=== PATIENT | female | born 1975 | race Caucasian/White ===

== ENCOUNTER 2017-07-14 12:54 | Emergency (ER) | payer OTHER ==
[~2017-07-14] VITALS: Ht 129.5 cm; Wt 72.6 kg
[~2017-07-14 12:54] MED LIST: CIPRODEX OTIC7.5 ML OT; CLEOCIN HCL300 M1 PO; NEOMYCIN-POLYMY10 M1 OT
--- NOTE | 2017-07-14 16:52 | ED HAND/WRIST INJURY COMPLAINT ---
History of Present Illness General Chief Complaint: Hand or Wrist Injury Stated Complaint: L WRIST INJURY Source: patient Exam Limitations: no limitations Vital Signs & Intake/Output Vital Signs & Intake/Output Vital Signs Date Time Temp Pulse Resp B/P B/P Pulse O2 O2 Flow FiO2 Mean Ox Delivery Rate 07/14 1747 97.8 87 20 124/77 100 Room Air 07/14 1504 96.1 94 20 129/87 97 Room Air 07/14 1316 97.9 103 20 129/82 96 Room Air Allergies Coded Allergies: strawberry (Severe, RASH, THROAT CLOSES 09/13/16) vancomycin (Severe, ANAPHYLAXIS PER PT AT [facility] 12/10/16) Echinacea (Intermediate, LIP SWELLING--COULD BE R/T AMOX INSTEAD 12/10/16) heparin (Intermediate, RASH, SENSATION THAT THROAT IS CLOSING. 09/13/16) mold (Intermediate, NASAL/SINUS 12/10/16) PER ALLERGY LIST SENT BY [facility] [place]. - 09/13/16 Cephalosporins (Intermediate, GI ISSUES 12/10/16) PER ALLERGY LIST SENT BY [facility]. - 09/13/16 Sulfa (Sulfonamide Antibiotics) (Intermediate, GI SYMPTOMS 12/10/16) PER ALLERGY LIST SENT BY [facility] [place]. - 09/13/16 gabapentin (Intermediate, GI SYMPTOMS 12/10/16) PER ALLERGY LIST SENT BY [facility]. - 09/13/16 Uncoded Allergies: DUST (Intermediate, NASLA/SINUS 12/10/16) PER ALLERGY LIST SENT BY [facility]. - 09/13/16 ROBBINS-2 INHIBITORS (UNKNOWN 09/13/16) PER ALLERGY LIST SENT BY [facility]. - 09/13/16 TREES (UNKNOWN 09/13/16) PER ALLERGY LIST SENT BY [facility]. - 09/13/16 Reconcile Medications Ciprofloxacin HCl/Dexameth (Ciprodex Otic Suspension) 0.3 %-0.1 % DROPS.SUSP 4 GTT OT BID OTITIS EXTERNA Clindamycin HCl (Cleocin HCl) 300 MG CAPSULE 1 CAP PO TID otitis media Neomycin/Polymyxin B Sulf/Hc (Xekvqafw-Petccvdia-Xj Ear Susp) 3.5 MG/ML-10,000 UNIT/ML-1 % DROPS.SUSP 4 GTT OT 4 TIMES/DAY otitis externa apply to left ear for 10 days Triage Note: C/O PAIN IN LEFT WRIST SINCE LAST PM, FELL OUT OF WHEELCHAIR. + RADIAL PULSE. DECLINES PAIN MEDS IN TRIAGE. Triage Nurses Notes Reviewed? yes Occurred: yesterday Duration: day(s): Injury Environment: home Severity: moderate Severity Numbers: 5 Pain/Injury Location: Left: Wrist. Context: fall Method of Injury: fall Modifying Factors: Improves With: pain medication. Associated Symptoms: none : No Patient currently breastfeeds: No HPI: 42 year old female with history of spina bifida presents to the clinic for left wrist pain. She states she was trying to get out of her wheel chair last night when she lost balance and fell on her out stretched hand. She said that she did not fall that hard. Her pain is a continuous 5/10 achy pain, improved with motrin, ice tenses up her arm, and does not radiate anywhere else. She denies head trauma, blacking out, losing consciousness, dizziness, lightheadedness, numbness, tingling, or being on blood thinners. (Yonathan Hirsch) Past History Travel History Traveled to [place] past 21 day No Medical History Any Pertinent Medical History? see below for history Neurological: migraine EENT: NONE Cardiovascular: NONE Respiratory: obstructive sleep apnea Gastrointestinal: diverticulitis, GERD Hepatic: NONE Renal: NONE Musculoskeletal: SPINA BIFIDA Psychiatric: NONE Endocrine: NONE Blood Disorders: NONE Cancer(s): NONE PROPERTY DEVELOPER/Reproductive: NONE Surgical History Surgical History: non-contributory Psychosocial History What is your primary language Bangladeshi Tobacco Use: Never used ETOH Use: denies use Family History Hx Contributory? No (Yonathan Hirsch) Review of Systems Review of Systems Constitutional: Reports: no symptoms. EENTM: Reports: no symptoms. Respiratory: Reports: no symptoms. Cardiovascular: Reports: no symptoms. GI: Reports: no symptoms. Genitourinary: Reports: no symptoms. Musculoskeletal: Reports: see HPI. Skin: Reports: no symptoms. Neurological/Psychological: Reports: no symptoms. Hematologic/Endocrine: Reports: no symptoms. Immunologic/Allergic: Reports: no symptoms. All Other Systems: Reviewed and Negative (Yonathan Hirsch) Physical Exam Physical Exam General Appearance: well developed/nourished, no apparent distress, alert, comfortable Head: atraumatic, normal appearance Eyes: Bilateral: normal appearance. Ears, Nose, Throat: hearing grossly normal Neck: normal inspection, supple, full range of motion Cardiovascular/Respiratory: normal breath sounds, regular rate/rhythm, no respiratory distress Shoulder Left: normal range of motion, normal inspection Shoulder Right: normal range of motion, normal inspection Elbow Left: normal range of motion, normal inspection Forearm Left: normal range of motion, normal inspection Wrist Left: normal range of motion, normal inspection, pain, no deformities, swelling, no erythema, photographic reproduction technician strength 5/5 Wrist Right: normal range of motion, normal inspection Hand Left: normal inspection, normal range of motion Hand Right: normal inspection, normal range of motion Neurologic/Tendon: normal sensation, normal motor functions, normal tendon functions, responds to pain, no evidence tendon injury, no pulse deficit Skin: intact, normal color (Yonathan Hirsch) Progress Differential Diagnosis: contusion, dislocation, fracture, sprain Plan of Care: Orders Procedure Date/time Status Durable Medical Equipment 07/14 1737 Active Diagnostic Imaging: Viewed by Me: Radiology Read. Discussed w/RAD: Radiology Read. Radiology Impression: PATIENT: JOSE TIRADO PRESENT AGE: 42 PATIENT ACCOUNT NO: [id number] : 74 LOCATION: [facility] ORDERING PHYSICIAN: Yonathan ANGUIANO SERVICE DATE: 07/14/17 EXAM TYPE: RAD - XRY-WRIST COMPLETE-LEFT EXAMINATION: XR WRIST, LEFT CLINICAL INFORMATION: Wrist pain. Fall. COMPARISON: None TECHNIQUE: 4 views. of the left wrist. FINDINGS: The bones and soft tissues are normal. No fracture. Alignment is anatomic with normal joint spaces. No erosions or abnormal soft tissue calcifications. IMPRESSION: Normal left wrist. DICTATED BY: Levi Duncan MD DATE/TIME DICTATED: 07/14/171706 BEARINGIZER:CORY DATE/TIME TRANSCRIBED:07/14/171706 CONFIDENTIAL, DO NOT COPY WITHOUT APPROPRIATE AUTHORIZATION. <Electronically signed in Other Vendor System> SIGNED BY: Levi Duncan MD 07/14/171710 (Yonathan Hirsch) Departure Departure Disposition: HOME OR SELF CARE Condition: Stable Clinical Impression Primary Impression: Left wrist sprain Referrals: Farens MD,Jerardo. (PCP/Family) Additional Instructions: Ice. Ibuprofen. Follow-up with orthopedic doctor as needed. Return if any concerns worsening symptoms. Please go over all results of today's visit with your primary care doctor. Contact your primary care doctor to let them know you were here in the emergency room. There may be nonspecific findings which may not be related to your visit today here in the emergency room but may require further evaluation and chronic monitoring by your primary care doctor. If you had a laceration today the chance of foreign body always remains. You should follow-up with your primary care doctor for recheck in 3-5 days for a wound check. If you had an x-ray done there is a chance that a fracture could have been missed on initial read and you should follow-up with your primary care doctor for repeat x-rays if symptoms persist. If your blood pressure was elevated here in the emergency room please have rechecked by [facility] primary care doctor within the next 48. If you were prescribed a narcotic here in the emergency room or any type of controlled substances you're not allowed to drive while taking this medication or operate any type of heavy machinery. Narcotics can make you feel lightheaded dizziness nausea and can cause constipation. You may need to picker feeder a stool softener. Thank you for choosing [facility] emergency room. Please return to the emergency room immediately if you have any other concerns worsening of symptoms. Departure Forms: Customer Survey General Discharge Information (Yonathan Hirsch) PA/DIRECTOR OF CARDIAC REHABILITATION Co-Sign Statement Statement: ED Attending supervision documentation- I saw and evaluated the patient. I have also reviewed all the pertinent lab results and diagnostic results. I agree with the findings and the plan of care as documented in the PA's/DIRECTOR OF CARDIAC REHABILITATION's documentation. x I have reviewed the ED Record and agree with the PA's/DIRECTOR OF CARDIAC REHABILITATION's documentation. [] Additions or exceptions (if any) to the PAs/DIRECTOR OF CARDIAC REHABILITATION's note and plan are summarized below: [] (Darian AGUILAR,Bart) Procedures Splinting Location: left wrist Manual Alignment Performed: No Pre-Made Type: velcro Splint: wrist Splint Applied By: splint applied by me Pre-Proc Neuro Vasc Exam: normal Post-Proc Neuro Vasc Exam: normal (Yonathan Hirsch)
--- NOTE | 2017-07-14 17:11 | RADIOLOGY REPORT ---
EXAMINATION: XR WRIST, LEFT CLINICAL INFORMATION: Wrist pain. Fall. COMPARISON: None TECHNIQUE: 4 views. of the left wrist. FINDINGS: The bones and soft tissues are normal. No fracture. Alignment is anatomic with normal joint spaces. No erosions or abnormal soft tissue calcifications. IMPRESSION: Normal left wrist.
[2017-07-14 17:47] VITALS: BP 124/77
== END 2017-07-14 17:48 ==
LOC: ERH 12:54
DX: S63.502A Unspecified sprain of left wrist, initial encounter (principal); W05.0XXA Fall from non-moving wheelchair, initial encounter; Y93.89 Activity, other specified; Y92.009 Unspecified place in unspecified non-institutional (private) residence as the place of occurrence of the external cause
CPT/HCPCS: 73110-LT

== ENCOUNTER 2017-09-27 11:57 | Emergency (ER) | payer OTHER ==
[~2017-09-27] VITALS: Ht 129.5 cm; Wt 72.6 kg
--- NOTE | 2017-09-27 14:01 | RADIOLOGY REPORT ---
EXAMINATION: XR PELVIS XR HIP, LEFT XR FEMUR, LEFT XR KNEE, LEFT CLINICAL INFORMATION: Left hip pain after fall. Left thigh pain after fall. Left knee pain after fall. COMPARISON: None TECHNIQUE: Frontal view of the pelvis. 2 views of the left hip. 2 views, 4 images of the left femur. 4 views of the left knee. FINDINGS: Pelvis/left hip: There is no evidence of acute fracture or dislocation. Dysplastic appearance of both hips. Prominent calcification/ossification in the medial soft tissues. The pelvic rim is intact. The sacroiliac joints are intact. The pubic symphysis appears slightly widened, although this may be chronic, as seen on prior CT. The bones are osteopenic. Left femur: There is a comminuted distal femoral metaphyseal fracture. Mild impaction. Soft tissue calcification extends medially to the level of the mid femur. Diffuse soft tissue prominence. Left knee: A comminuted distal femoral metaphyseal fracture is noted. There is mild impaction. Anteriorly displaced cortical fragment which measures 2.1 cm in CC dimension. Anterior angulation of the distal fragment with mild anterior displacement. No definite intra-articular extension Alignment at the knee appears maintained. Knee joint effusion suspected with lipohemarthrosis. IMPRESSION: Comminuted distal femoral metaphyseal fracture. Mild impaction. Diffuse osteopenia. Dysplastic appearance of the hips which is chronic.
--- NOTE | 2017-09-27 14:41 | ED GENERAL ADULT ---
History of Present Illness General Chief Complaint: General Adult Stated Complaint: L FEMUR FX S/P FALL FROM WHEELCHAIR TUESDAY Source: patient Exam Limitations: no limitations Vital Signs & Intake/Output Vital Signs & Intake/Output Vital Signs Date Time Temp Pulse Resp B/P B/P Pulse O2 O2 Flow FiO2 Mean Ox Delivery Rate 09/27 1809 99.3 112 18 120/44 95 Room Air 09/27 1610 100.3 112 20 115/56 96 Room Air 09/27 1453 98.0 100 20 112/76 99 Room Air 09/27 1201 98.3 118 18 146/95 96 Room Air Room Air ED Intake and Output 09/28 0000 09/27 1200 Intake Total Output Total Balance Patient 160 lb Weight Weight Reported by Patient Measurement Method Triage Note: PT TO ED WITH FATHER S/P FALL FORWARD OUT OF WHEELCHAIR ON TUESDAY, HX SPINA BIFIDA, WHEELCHAIR BOUND AT BASELINE, PT NOTICED LAST NIGHT LEFT UPPER LEG SWELLING AND BACK SIDE OF KNEE SWELLING, UNABLE TO BEND LEFT KNEE. WENT TO URGENT CARE AND HAD XRAYS, + FRACTURE OF LEFT FEMUR "IN 2-3 PLACES". FATHER HAS COPY OF XRAY ON DISC. Triage Nurses Notes Reviewed? yes Onset: Abrupt Duration: day(s): (2), constant, continues in ED Timing: single episode today Injury Environment: home Severity: mild, moderate No Modifying Factors: none LMP (ages 10-50): unknown : No Patient currently breastfeeds: No HPI: 42-year-old female history of spina bifida who is paralyzed from the waist down presents for evaluation of swelling of the left thigh and knee. Patient reports that 2 days ago she had slipped out of her wheelchair landing on her left knee and thigh. There was no head strike no other injuries. She does not feel any pain from the waist down but noticed that the knee and hip were swollen. She went to an urgent care with a completed x-rays and noted a fracture of her distal femur. Patient reports that she otherwise feels well. She does not that she has had some cough and congestion over the past several days which she has a history to allergies. She's not had fevers. No headaches chest pain shortness of breath. She spends her time in a wheelchair or in bed. (Brice ANGUIANO,Ry) Allergies Coded Allergies: strawberry (Severe, RASH, THROAT CLOSES 09/13/16) vancomycin (Severe, ANAPHYLAXIS PER PT AT [facility] 12/10/16) Echinacea (Intermediate, LIP SWELLING--COULD BE R/T AMOX INSTEAD 12/10/16) heparin (Intermediate, RASH, SENSATION THAT THROAT IS CLOSING. 09/13/16) mold (Intermediate, NASAL/SINUS 12/10/16) PER ALLERGY LIST SENT BY [facility]. -CG 09/13/16 celecoxib (UNKNOWN 09/30/17) tree and shrub pollen (UNKNOWN 09/30/17) Cephalosporins (Intermediate, GI ISSUES 12/10/16) PER ALLERGY LIST SENT BY [facility]. -CG 09/13/16 Sulfa (Sulfonamide Antibiotics) (Intermediate, GI SYMPTOMS, HAD TO HAVE TUBES PUT IN HER EAR FROM OTIC DROP 09/30/17) PER ALLERGY LIST SENT BY [facility]. -CG 09/13/16 gabapentin (Intermediate, GI SYMPTOMS 12/10/16) PER ALLERGY LIST SENT BY [facility]. - 09/13/16 Uncoded Allergies: DUST (Intermediate, NASAL/SINUS 09/30/17) PER ALLERGY LIST SENT BY [facility]. - 09/13/16 Reconcile Medications Alprazolam 0.25 MG TABLET 1 TAB PO PRN ANXIETY (Reported) Ibuprofen (Advil) 200 MG TABLET 2 TAB PO Q4-5H PRN PAIN/INFLAMMATION ( Reported) [WEIGHT LOSS SUPPLEME] 1 CAP PO DAILY SUPPLEMENT (Reported) (Darian GAUILAR,Bart) Past History Travel History Traveled to [place] past 21 day No Medical History Any Pertinent Medical History? see below for history Neurological: migraine EENT: NONE Cardiovascular: NONE Respiratory: obstructive sleep apnea Gastrointestinal: diverticulitis, GERD Hepatic: NONE Renal: NONE Musculoskeletal: SPINA BIFIDA Psychiatric: NONE Endocrine: NONE Blood Disorders: NONE Cancer(s): NONE SIMULATION DEVELOPER/Reproductive: NONE Surgical History Surgical History: non-contributory Psychosocial History What is your primary language Vietnamese Tobacco Use: Never used ETOH Use: denies use Illicit Drug Use: denies illicit drug use Family History Hx Contributory? No (Ry Simmons) Review of Systems Review of Systems Constitutional: Reports: no symptoms. EENTM: Reports: no symptoms. Respiratory: Reports: no symptoms. Cardiovascular: Reports: no symptoms. GI: Reports: no symptoms. Genitourinary: Reports: no symptoms. Musculoskeletal: Reports: see HPI, joint swelling. Skin: Reports: no symptoms. Neurological/Psychological: Reports: no symptoms. Hematologic/Endocrine: Reports: no symptoms. Immunologic/Allergic: Reports: no symptoms. All Other Systems: Reviewed and Negative (Ry Simmons) Physical Exam Physical Exam General Appearance: well developed/nourished, no apparent distress, alert, awake Head: atraumatic, normal appearance Eyes: Bilateral: normal appearance, PERRL, EOMI. Ears, Nose, Throat: hearing grossly normal Neck: normal inspection, supple, full range of motion Respiratory: normal breath sounds, chest non-tender, no respiratory distress, lungs clear Cardiovascular: regular rate/rhythm, normal peripheral pulses Peripheral Pulses: 1+ tibialis posterior (R), 1+ tibialis posterior (L), 1+ dorsalis pedis (R), 1+ dorsalis pedis (L) Gastrointestinal: soft, non-tender Back: normal inspection, normal range of motion, no vertebral tenderness Extremities: patient is paralyzed from the waist down. The left distal upper leg and knee are diffusely swollen. No erythema the skin is not tense. No gross deformities. Range of motion and sensory supply is not present at baseline. vascular supply is intact. The muscles are diffusely atrophied bilaterally, does not appear in any breakdown of the skin. No ulcerations no evidence of cellulitis Neurologic/Psych: no motor/sensory deficits, awake, alert, oriented x 3 Skin: intact, normal color, warm/dry Core Measures ACS in differential dx? No CVA/TIA Diagnosis: No Sepsis Present: No Sepsis Focused Exam Completed? No (Ry Simmons) Progress Differential Diagnoses I considered the following diagnoses in my evaluation of the patient: [Fracture, contusion, sprain, joint effusion or septic arthritis] Plan of Care: Orders Procedure Date/time Status Durable Medical Equipment 09/27 1534 Active CBC WITHOUT DIFFERENTIAL 09/27 1419 Complete EKG 09/27 1419 Active Laboratory Tests 09/27/17 1505: Troponin I Cancelled, APTT Cancelled, CBC w Diff NO MAN DIFF REQ, RBC 4.59, MCV 81.3, MCH 26.5 L, MCHC 32.5 L, RDW 15.6 H, MPV 8.0, Gran % 79.0 H, Lymphocytes % 9.3 L, Monocytes % 10.2 H, Eosinophils % 1.0, Basophils % 0.5, Absolute Granulocytes 7.2 H, Absolute Lymphocytes 0.8 L, Absolute Monocytes 0.9 H, Absolute Eosinophils 0.1, Absolute Basophils 0 09/27/17 1419: Urine Color Cancelled, Urine Clarity Cancelled, Urine pH Cancelled, Ur Specific Hayes Cancelled, Urine Protein Cancelled, Urine Ketones Cancelled, Urine Nitrite Cancelled, Urine Bilirubin Cancelled, Urine Urobilinogen Cancelled, Ur Leukocyte Esterase Cancelled, Ur Microscopic Cancelled, Urine Hemoglobin Cancelled, Urine Glucose Cancelled She is here after a fall. She is wheelchair-bound and paralyzed from the waist down due to spina bifida. She landed on her left leg. She has no pain as she is paralyzed but does note swelling to the left knee and thigh. X-rays were obtained and show a comminuted distal femoral metaphyseal fracture. It is slightly impacted. The knee is aligned no fracture of the hip. Vascular supply is intact. Spoke with Dr. Sahu who recommends placing the patient in a knee immobilizer and repeat the x-ray. Patient was placed in a knee immobilizer and x-rays showed appropriate alignment of the femur. Dr. Sahu reviewed all images and feels that the best course of action at this time is a nonsurgical approach and the patient stay in a knee immobilizer. Advised patient to wear immobilizer at all times. Check skin and clean skin once daily. Advised patient to look out for signs of ulceration or skin breakdown. Patient will follow-up with Christian Sahu MD's Tuesday or Tuesday. Patient did spike a low-grade temp of 100.3 while in the emergency department. There is no evidence of cellulitis or septic arthritis on exam. Her lungs are clear to auscultation she has no chest pain or shortness of breath. She does note a mild cough. Cbc is negative for elevated white count. Patient was medicated with Tylenol with resolution of her fever. Patient has no abdominal pain. She has no history of recurrent UTIs. Continue Tylenol or ibuprofen for fever and monitor symptoms. If fever persists she has worsening swelling or skin changes chest pain shortness of breath or any other concerns return immediately. Reviewed return precautions in detail. Diagnostic Imaging: Viewed by Me: Radiology Read. Discussed w/RAD: Radiology Read. Radiology Impression: PATIENT: JOSE TIRADO PRESENT AGE: 42 PATIENT ACCOUNT NO: [id number] : 74 LOCATION: [facility] ORDERING PHYSICIAN: Ry ANGUIANO SERVICE DATE: 09/27/17 EXAM TYPE: RAD - XRY-AP PELVIS; XRY-FEMUR, LEFT 2 VIEWS; XRY-HIP 2-3 VIEWS, LEFT; XRY-KNEE COMPLETE LEFT EXAMINATION: XR PELVIS XR HIP, LEFT XR FEMUR, LEFT XR KNEE, LEFT CLINICAL INFORMATION: Left hip pain after fall. Left thigh pain after fall. Left knee pain after fall. COMPARISON: None TECHNIQUE: Frontal view of the pelvis. 2 views of the left hip. 2 views, 4 images of the left femur. 4 views of the left knee. FINDINGS: Pelvis/left hip: There is no evidence of acute fracture or dislocation. Dysplastic appearance of both hips. Prominent calcification/ ossification in the medial soft tissues. The pelvic rim is intact. The sacroiliac joints are intact. The pubic symphysis appears slightly widened, although this may be chronic, as seen on prior CT. The bones are osteopenic. Left femur: There is a comminuted distal femoral metaphyseal fracture. Mild impaction. Soft tissue calcification extends medially to the level of the mid femur. Diffuse soft tissue prominence. Left knee: A comminuted distal femoral metaphyseal fracture is noted. There is mild impaction. Anteriorly displaced cortical fragment which measures 2.1 cm in CC dimension. Anterior angulation of the distal fragment with mild anterior displacement. No definite intra-articular extension Alignment at the knee appears maintained. Knee joint effusion suspected with lipohemarthrosis. IMPRESSION: Comminuted distal femoral metaphyseal fracture. Mild impaction. Diffuse osteopenia. Dysplastic appearance of the hips which is chronic. DICTATED BY: Tonio Mclaughlin MD DATE/TIME DICTATED:09/27/171351 LOADING DOCK HELPER:CORY DATE/TIME TRANSCRIBED:1351 CONFIDENTIAL, DO NOT COPY WITHOUT APPROPRIATE AUTHORIZATION. < Electronically signed in Other Vendor System> SIGNED BY: Tonio Mclaughlin MD 09/27/17 1401, PRESENT AGE: 42 PATIENT ACCOUNT NO: [id number] : 74 LOCATION: [facility] ORDERING PHYSICIAN: Ry ANGUIANO SERVICE DATE: 09/27/17 EXAM TYPE: RAD - XRY-KNEE COMPLETE LEFT EXAMINATION: XR KNEE, LEFT CLINICAL INFORMATION: Femur fracture. Immobilizer placement. COMPARISON: Radiographs from earlier today. TECHNIQUE: Four views of the left knee. FINDINGS: Comminuted distal femoral metaphyseal fracture is again noted. There is persistent mild impaction. Alignment is without significant change. Slight anterior angulation of the distal fragment. Displaced cortical fragment anteriorly. Lipohemarthrosis present. Diffuse soft tissue swelling. Diffuse osteopenia. IMPRESSION: Comminuted distal femoral metaphyseal fracture. Similar alignment to prior. DICTATED BY: Lissette AGUILAR,Tonio DATE/TIME DICTATED:09/27/171640 LOADING DOCK HELPER:CORY DATE/TIME TRANSCRIBED:09/27/171640 CONFIDENTIAL, DO NOT COPY WITHOUT APPROPRIATE AUTHORIZATION. <Electronically signed in Other Vendor System Initial ED EKG: normal sinus rhythm (Ry Simmons) Departure Departure Disposition: HOME OR SELF CARE Condition: Stable Clinical Impression Primary Impression: Femur fracture, left Qualifiers: Encounter type: initial encounter Femur location: unspecified portion of femur Fracture type: closed Fracture morphology: unspecified fracture morphology Qualified Code: S72.92XA - Unspecified fracture of left femur, initial encounter for closed fracture Referrals: Luis Alberto AGUILAR,Christian Wong MD,Jas Casillas (PCP/Family) Additional Instructions: Rest, avoid excessive movement. Wear splint at all times except for once daily for cleaning and checking your skin. Make a follow-up with Christian Sahu MD orthopedic surgeon for next Tuesday or tuesday. Monitor symptoms closely. If YOU HAVE a persistent high fever, redness of your knee, worsening swelling or any other concerns return immediately. Departure Forms: Customer Survey General Discharge Information (Ry Simmons) PA/QUALITY ASSURANCE INTERN Co-Sign Statement Statement: ED Attending supervision documentation- x I saw and evaluated the patient. I have also reviewed all the pertinent lab results and diagnostic results. I agree with the findings and the plan of care as documented in the PA's/QUALITY ASSURANCE INTERN's documentation. [] I have reviewed the ED Record and agree with the PA's/QUALITY ASSURANCE INTERN's documentation. [] Additions or exceptions (if any) to the PAs/QUALITY ASSURANCE INTERN's note and plan are summarized below: [] (Darian AGUILAR,Bart) Critical Care Note Critical Care Note Critical Care Time: non-applicable (Brice ANGUIANO,Ry)
[2017-09-27 15:28] LABS: ABSOLUTE BASOPHIL COUNT 0 /CUMM (0.0-0.2); ABSOLUTE EOSINOPHIL COUNT 0.1 /CUMM (0.0-0.7); ABSOLUTE GRANULOCYTE CT 7.2 /CUMM (1.4-6.5); ABSOLUTE LYMPH COUNT 0.8 /CUMM (1.2-3.4); ABSOLUTE MONOCYTE COUNT 0.9 /CUMM (0.10-0.60); BASOPHIL % 0.5 % (0.0-2.0); HEMATOCRIT 37.3 % (37-47); MEAN CORPUSCULAR HGB 26.5 PG (27.0-31.0); MEAN CORPUSCULAR HGB CONC 32.5 G/DL (33.0-37.0); MEAN CORPUSCULAR VOLUME 81.3 FL (81.0-99.0); PLATELET COUNT 324 /CUMM (130-400); RBC DISTRIBUTION WIDTH 15.6 % (11.5-14.5); RED BLOOD CELL CT 4.59 /CUMM (4.20-5.40); WHITE BLOOD CELL COUNT 9.1 /CUMM (4.8-10.8)
--- NOTE | 2017-09-27 16:46 | RADIOLOGY REPORT ---
EXAMINATION: XR KNEE, LEFT CLINICAL INFORMATION: Femur fracture. Immobilizer placement. COMPARISON: Radiographs from earlier today. TECHNIQUE: Four views of the left knee. FINDINGS: Comminuted distal femoral metaphyseal fracture is again noted. There is persistent mild impaction. Alignment is without significant change. Slight anterior angulation of the distal fragment. Displaced cortical fragment anteriorly. Lipohemarthrosis present. Diffuse soft tissue swelling. Diffuse osteopenia. IMPRESSION: Comminuted distal femoral metaphyseal fracture. Similar alignment to prior.
[2017-09-27 18:09] VITALS: BP 120/44
[2017-09-30] MEDS ORDERED: ADVIL200 M2 PO (17:46)
[2017-09-30] MEDS ORDERED: ALPRAZOLAM0.25 M1 PO (17:47)
[2017-09-30] MEDS ORDERED: [UNRECOGNIZED DRUG - OTHER] PO (17:47)
== END 2017-09-27 18:32 ==
LOC: ERH 11:57
PROVIDERS: Physician Assistant Medical
DX: S72.352A Displaced comminuted fracture of shaft of left femur, initial encounter for closed fracture (principal); W05.0XXA Fall from non-moving wheelchair, initial encounter; Y92.009 Unspecified place in unspecified non-institutional (private) residence as the place of occurrence of the external cause
CPT/HCPCS: 72170; 73502-LT; 73552; 73562-LT; 93005; 93010; 96374; J0131

== ENCOUNTER 2017-11-11 17:53 | Emergency (ER) | payer OTHER ==
[~2017-11-11] VITALS: Ht 129.5 cm; Wt 72.6 kg
[~2017-11-11 17:53] MED LIST changes: +ADVIL200 M2 PO; +ALPRAZOLAM0.25 M1 PO; +[UNRECOGNIZED DRUG - OTHER] PO
[2017-11-11 17:57] VITALS: BP 136/86
--- NOTE | 2017-11-11 19:39 | ED UPPER/LOWER EXTREMITY COMPL ---
History of Present Illness General Chief Complaint: Lower Extremity Problems Stated Complaint: SENT BY DR FOR POSSIBLE CLOT IN LEFT LEG Source: patient Exam Limitations: no limitations Vital Signs & Intake/Output Vital Signs & Intake/Output Vital Signs Date Time Temp Pulse Resp B/P B/P Pulse O2 O2 Flow FiO2 Mean Ox Delivery Rate 11/11 1757 98.4 106 18 136/86 98 Room Air Allergies Coded Allergies: strawberry (Severe, RASH, THROAT CLOSES 09/13/16) vancomycin (Severe, ANAPHYLAXIS PER PT AT [facility] 12/10/16) Echinacea (Intermediate, LIP SWELLING--COULD BE R/T AMOX INSTEAD 12/10/16) heparin (Intermediate, RASH, SENSATION THAT THROAT IS CLOSING. 09/13/16) mold (Intermediate, NASAL/SINUS 12/10/16) PER ALLERGY LIST SENT BY [facility]. -CG 09/13/16 celecoxib (UNKNOWN 09/30/17) tree and shrub pollen (UNKNOWN 09/30/17) Cephalosporins (Intermediate, GI ISSUES 12/10/16) PER ALLERGY LIST SENT BY [facility] [place] -CG 09/13/16 Sulfa (Sulfonamide Antibiotics) (Intermediate, GI SYMPTOMS, HAD TO HAVE TUBES PUT IN HER EAR FROM OTIC DROP 09/30/17) PER ALLERGY LIST SENT BY [facility] [place]. -CG 09/13/16 gabapentin (Intermediate, GI SYMPTOMS 12/10/16) PER ALLERGY LIST SENT BY [facility] [place]. -CG 09/13/16 Uncoded Allergies: DUST (Intermediate, NASAL/SINUS 09/30/17) PER ALLERGY LIST SENT BY [facility] [place]. -CG 09/13/16 Reconcile Medications Alprazolam 0.25 MG TABLET 1 TAB PO PRN ANXIETY (Reported) Ibuprofen (Advil) 200 MG TABLET 2 TAB PO Q4-5H PRN PAIN/INFLAMMATION ( Reported) [WEIGHT LOSS SUPPLEME] 1 CAP PO DAILY SUPPLEMENT (Reported) Triage Note: 42 YO FEAMLE SENT TO ER BY DR JOHNSON FOR R/O DVT IN L LEG. PT HX OF SPINAL BIFIDA, PARAPLEGIC, STATES SHE FRACTURED THE FEMUR 5 WEEKS AGO. NEW SWELLING TO LEG NOW. Triage Nurses Notes Reviewed? yes Onset: Abrupt Duration: hour(s):, constant, continues in ED Severity: mild, moderate : No Patient currently breastfeeds: No HPI: Patient presents for evaluation of swelling redness and "firmness" of the left proximal medial thigh that began today. Patient states that she fractured her femur in "3 places" on September 23. The patient is insensate to the legs and was unaware of the injury initially. Patient spoke with her engineering documentation specialist today regarding the swelling and presents for evaluation of possible DVT. Patient's symptoms have been chronic since onset of continue here in the emergency department. She denies any associated chest pain or shortness of breath or palpitations. She spoke with her engineering documentation specialist who sent her to the emergency Department to rule out a blood clot. Past History Travel History Traveled to [place] past 21 day No Medical History Any Pertinent Medical History? see below for history Neurological: migraine EENT: NONE Cardiovascular: NONE Respiratory: obstructive sleep apnea Gastrointestinal: diverticulitis, GERD Hepatic: NONE Renal: NONE Musculoskeletal: SPINA BIFIDA Psychiatric: NONE Endocrine: NONE Blood Disorders: NONE Cancer(s): NONE RECEIVING COORDINATOR/Reproductive: NONE Surgical History Surgical History: non-contributory Psychosocial History What is your primary language Omani Tobacco Use: Quit >30 days ago Family History Hx Contributory? No Review of Systems Review of Systems Constitutional: Reports: no symptoms. EENTM: Reports: no symptoms. Respiratory: Reports: no symptoms. Cardiovascular: Reports: no symptoms. Gastrointestinal/Abdominal: Reports: no symptoms. Genitourinary: Reports: no symptoms. Musculoskeletal: Reports: no symptoms. Skin: Reports: see HPI. Neurological/Psychological: Reports: no symptoms. Hematologic/Endocrine: Reports: no symptoms. Immunological: Reports: no symptoms. All Other Systems: Reviewed and Negative Physical Exam Physical Exam General Appearance: see below Comments: Gen.: Well-nourished, well-developed, no acute respiratory distress. Head: Normocephalic, atraumatic. Eyes: Normal inspection bilaterally Ears: Normal inspection bilaterally Nose: Normal inspection Throat/mouth : Moist mucosa Neck: Supple, full range of motion, no goiter Heart: Regular rate and rhythm Lungs: Quiet respirations Back: Normal range of motion Extremities: Left lower extremity: Left proximal medial thigh induration without warmth or erythema. There is no fluctuance. Patient is unable to determine tenderness as she is insensate from the waist down. Neurologic: Cranial nerves grossly intact, speech is clear Skin: warm and dry Psychiatric: Calm, cooperative, no apparent delusions or hallucinations Progress Differential Diagnosis: cellulitis, abscess, contact dermatitis, shingles Plan of Care: Orders Procedure Date/time Status PARTIAL THROMBOPLASTIN TIME 11/11 1801 Active PROTHROMBIN TIME 11/11 1801 Active COMPREHENSIVE METABOLIC PANEL 11/11 1801 Active CBC WITHOUT DIFFERENTIAL 11/11 1801 Active Diagnostic Imaging: Discussed w/RAD: Ultrasound. Radiology Impression: PATIENT: JOSE TIRADO PRESENT AGE: 42 PATIENT ACCOUNT NO: [id number] : 74 LOCATION: [facility] ORDERING PHYSICIAN: Dali ANGUIANO SERVICE DATE: 11/11/17 EXAM TYPE: US - US -DUPLEX VENOUS EXTREM UNI EXAMINATION: US TRIPLEX LOWER EXTREMITY, LEFT CLINICAL INFORMATION: Swelling. COMPARISON: None TECHNIQUE: Color-flow triplex imaging with spectral analysis and compression Doppler were performed on the lower extremity. FINDINGS: Respiratory variation, normal compression and augmented flow are noted throughout the lower extremity. The visualized common femoral vein, superficial femoral vein, profunda femoral vein, popliteal vein and midcalf peroneal and posterior tibial venous segments show no evidence of deep venous thrombosis. There is no Santiago's cyst. IMPRESSION: No evidence of deep venous thrombosis involving the lower extremity. DICTATED BY: Sanju San MD DATE/TIME DICTATED:11/11/171953 RELIABILITY SPECIALIST:CORY DATE/TIME TRANSCRIBED:11/11/171953 CONFIDENTIAL, DO NOT COPY WITHOUT APPROPRIATE AUTHORIZATION. <Electronically signed in Other Vendor System> SIGNED BY: Sanju San MD 11/11/171957 Departure Departure Disposition: HOME OR SELF CARE Condition: Stable Clinical Impression Primary Impression: Skin induration Referrals: Marvin AGUILAR,Jas Casillas (PCP/Family) Additional Instructions: Your ultrasound shows no blood clot. Your physical examination is not convincing for a skin infection at this time. Please Follow-up with engineering documentation specialist and primary care physician this week for reevaluation. Return if any concerns or sudden worsening. Thank you for choosing the [facility] Emergency Department for your care. It was a pleasure to serve you today. Joe Goodman M.D. [facility] Departure Forms: Customer Survey General Discharge Information
--- NOTE | 2017-11-11 19:58 | ULTRASOUND REPORT ---
EXAMINATION: US TRIPLEX LOWER EXTREMITY, LEFT CLINICAL INFORMATION: Swelling. COMPARISON: None TECHNIQUE: Color-flow triplex imaging with spectral analysis and compression Doppler were performed on the lower extremity. FINDINGS: Respiratory variation, normal compression and augmented flow are noted throughout the lower extremity. The visualized common femoral vein, superficial femoral vein, profunda femoral vein, popliteal vein and midcalf peroneal and posterior tibial venous segments show no evidence of deep venous thrombosis. There is no Santiago's cyst. IMPRESSION: No evidence of deep venous thrombosis involving the lower extremity.
== END 2017-11-11 20:26 ==
LOC: ERH 17:53
DX: R23.4 Changes in skin texture (principal); M79.89 Other specified soft tissue disorders